=== PATIENT | female | born 1950 | race African-American/Black ===

== ENCOUNTER 2022-05-21 13:50 | Emergency (ER) | payer MEDICARE, MEDICAID ==
[~2022-05-21] VITALS: Ht 170.2 cm; Wt 114.0 kg
[2022-05-21 17:18] LABS: HEMATOCRIT. 33.9 % (36.0-48.0); HEMOGLOBIN. 11.1 g/dL (12.0-16.0); MEAN CORPUSCULAR HEMOGLOBIN 28.2 pg (28.0-32.0); MEAN CORPUSCULAR VOLUME 85.8 fL (81.0-99.0); MEAN PLATELET VOLUME 9.9 fl (7.4-10.4); PLATELET 112 x1000/uL (130-400); RED BLOOD CELL COUNT 3.95 mill/uL (4.2-5.4); RED CELL DISTRIBUTION WIDTH 15.9 % (11.6-14.6)
[2022-05-21 17:23] LABS: CHLORIDE 108 mEq/L (98-107)
[2022-05-21] MEDS ORDERED: POTASSIUM CHLORIDE 20MEQ TABLET SR PO NR (18:00)
[2022-05-21 18:04] LABS: PLATELET ESTIMATE DECREASED
[2022-05-21 20:44] VITALS: BP 145/79
== END 2022-05-21 21:15 | disposition home or self-care (01) ==
LOC: ER 14:41
DX: R55 Syncope and collapse (principal); E87.6 Hypokalemia; R94.31 Abnormal electrocardiogram [ECG] [EKG]; R03.0 Elevated blood-pressure reading, without diagnosis of hypertension; R94.5 Abnormal results of liver function studies
CPT/HCPCS: 36415; 71045; 80053; 83880; 84484; 85025; 93005; 99285

== ENCOUNTER 2023-04-18 21:16 | Emergency (ER) | payer MEDICARE, MEDICAID ==
[~2023-04-18] VITALS: Ht 167.6 cm; Wt 73.0 kg
[2023-04-18] MEDS ORDERED: SODIUM CHLORIDE 0.9% 1,000 ML IV ONE (22:15)
[2023-04-18 23:16] LABS: BASOPHILS % 0.2 % (0.0-2.0); HEMATOCRIT. 29.9 % (36.0-48.0); HEMOGLOBIN. 9.8 g/dL (12.0-16.0); LYMPHOCYTES % 7.7 % (20.0-50.0); MEAN CORPUSCULAR HEMOGLOBIN 28.7 pg (28.0-32.0); MEAN CORPUSCULAR VOLUME 87.5 fL (81.0-99.0); MEAN PLATELET VOLUME 9.7 fl (7.4-10.4); MONOCYTES % 12.5 % (2.0-8.0); NEUTROPHILS % 79.6 % (40.0-76.0); PLATELET 103 x1000/uL (130-400); RED BLOOD CELL COUNT 3.42 mill/uL (4.2-5.4)
[2023-04-18 23:28] LABS: INR 1.3; PARTIAL THROMBOPLASTIN TIME 24.8 sec (23.4-31.0); PROTHROMBIN TIME 13.5 sec (9.6-11.0)
[2023-04-18 23:35] LABS: CHLORIDE 111 mEq/L (98-107)
[2023-04-19 03:26] VITALS: BP 139/69
[2023-04-19] MEDS ORDERED: IOHEXOL-300 100 ML BOTTLE ONE (05:32)
[2023-04-19] MEDS ORDERED: CEPH250C2 PO (15:58)
[2023-04-19] MEDS ORDERED: OXYC-100 MT (15:59)
[2023-04-20] MEDS ORDERED: KEPP500 PO (11:46)
== END 2023-04-19 04:29 | disposition home or self-care (01) ==
LOC: ER 21:16
DX: R55 Syncope and collapse (principal)
CPT/HCPCS: 36415; 70450; 71045; 74177; 80053; 83690; 83880; 84484; 85025; 85610; 85730; 86850; 86900; 86901; 93005; 99285; J7030; Q9967

== ENCOUNTER 2023-04-19 05:27 | Inpatient (IN) | payer MEDICARE, MEDICAID ==
[~2023-04-19] VITALS: Ht 165.1 cm; Wt 68.0 kg
[2023-04-19] MEDS ORDERED: SODIUM CHLORIDE 0.9% 1,000 ML IV ONE (05:45)
[2023-04-19 06:22] LABS: HEMOGLOBIN. 10.3 g/dL (12.0-16.0); MEAN CORPUSCULAR HEMOGLOBIN 28.8 pg (28.0-32.0); MEAN CORPUSCULAR VOLUME 86.4 fL (81.0-99.0); MEAN PLATELET VOLUME 10.1 fl (7.4-10.4); PLATELET 98 x1000/uL (130-400); RED BLOOD CELL COUNT 3.59 mill/uL (4.2-5.4)
[2023-04-19 06:30] LABS: CHLORIDE 112 mEq/L (98-107)
[2023-04-19 08:05] LABS: PLATELET ESTIMATE DECREASED
[2023-04-19 09:00] VITALS: BP 122/71
[2023-04-19] MEDS ORDERED: ONDANSETRON HCL 4MG/2ML INJ IV PRN (09:45)
[2023-04-19] MEDS ORDERED: ACETAMINOPHEN 325MG TABLET PO PRN (09:45)
[2023-04-19 12:00] VITALS: BP 130/75
[2023-04-19] MEDS ORDERED: CEPH250C2 PO (15:58)
[2023-04-19] MEDS ORDERED: OXYC-100 MT (15:59)
[2023-04-19 16:00] VITALS: BP 125/73
[2023-04-19] MEDS ORDERED: CEPHALEXIN 250MG CAPSULE PO SCH (17:00)
[2023-04-19] MEDS ORDERED: LORAZEPAM 2MG/ML CPJ IV NR (17:15)
[2023-04-19] MEDS: CEPHALEXIN 250MG CAPSULE PO SCH (17:44)
[2023-04-19] MEDS: HYDROCODONE/ACETAMINOPHEN 5/325MG TABLET PO PRN (17:44)
[2023-04-19] MEDS ORDERED: NALOXONE HCL 0.4MG/ML VIAL IV PRN (19:00)
[2023-04-19 20:00] VITALS: BP 116/42
[2023-04-19] MEDS: LEVETIRACETAM 500MG TABLET PO SCH (21:58)
[2023-04-20] VITALS: BP 114/52
[2023-04-20] MEDS: HYDROCODONE/ACETAMINOPHEN 5/325MG TABLET PO PRN ×3 (00:46→09:38)
[2023-04-20 04:00] VITALS: BP 103/50
[2023-04-20 08:00] VITALS: BP 111/57
[2023-04-20] MEDS: CEPHALEXIN 250MG CAPSULE PO SCH ×2 (09:37→13:36)
[2023-04-20] MEDS: LEVETIRACETAM 500MG TABLET PO SCH (09:37)
[2023-04-20] MEDS ORDERED: KEPP500 PO (11:46)
[2023-04-20 12:00] VITALS: BP 113/58
[2023-04-20 14:41] LABS: CLARITY URINE CLEAR (CLEAR); COLOR URINE YELLOW (YELLOW); KETONES URINE NEGATIVE (NEGATIVE); LEUKOCYTE ESTERASE URINE NEGATIVE (NEGATIVE); NITRITE URINE NEGATIVE (NEGATIVE); OCCULT BLOOD URINE NEGATIVE (NEGATIVE); PH URINE 6.5 (4.5-8.0); PROTEIN URINE NEGATIVE (NEGATIVE); SPECIFIC GRAVITY URINE 1.011 (1.005-1.030)
[2023-04-20] MEDS ORDERED: DOCUSATE SODIUM 250MG CAPSULE PO NR (15:00)
[2023-04-20 15:08] VITALS: BP 113/58
== END 2023-04-20 16:15 | disposition home or self-care (01) | DRG 73 ==
LOC: ER 05:27 → 7WST 08:05 → EDBEDREQTM 08:12 → EDBEDREQ 08:12
PROVIDERS: ADMIT Internal Medicine; ATTEND Internal Medicine
DX: G90.8 Other disorders of autonomic nervous system (principal); E43 Unspecified severe protein-calorie malnutrition; K75.4 Autoimmune hepatitis; D64.9 Anemia, unspecified; G40.909 Epilepsy, unspecified, not intractable, without status epilepticus; M19.90 Unspecified osteoarthritis, unspecified site; R79.89 Other specified abnormal findings of blood chemistry; R74.01 Elevation of levels of liver transaminase levels; Z96.643 Presence of artificial hip joint, bilateral; Z68.25 Body mass index [BMI] 25.0-25.9, adult; Z82.49 Family history of ischemic heart disease and other diseases of the circulatory system
CPT/HCPCS: 36415; 70551; 71045; 74177; 80053; 81003; 83880; 84484; 85025; 86850; 86900; 93005; 93306; 97162; 99285; J7030; Q9967